=== PATIENT | female | born 1960 | race Hispanic/Latino ===

== ENCOUNTER 2018-09-22 08:30 | Inpatient (IN) | payer MEDICARE ==
[~2018-09-22] VITALS: Ht 149.9 cm; Wt 68.8 kg
[2018-09-22 14:15] VITALS: BP 108/58
[2018-09-22 14:21] LABS: INR 0.87 (0.85-1.15); PARTIAL THROMBOPLASTIN TIME 26.4 SEC (26.3-35.5); PROTHROMBIN TIME 9.2 SEC (9.6-11.6)
[2018-09-22] MEDS ORDERED: PREG75 PO (14:30)
[2018-09-22] MEDS ORDERED: HYDR-4060 PO (14:30)
[2018-09-22] MEDS ORDERED: PRAV20TA4 PO (14:30)
[2018-09-22] MEDS ORDERED: INSU100V12 SQ (14:30)
[2018-09-22] MEDS ORDERED: INSNOV SQ (14:30)
[2018-09-22] MEDS ORDERED: ASPI-555 PO (14:30)
[2018-09-22] MEDS ORDERED: METF-446 PO (14:30)
--- NOTE | 2018-09-22 15:20 | NUR ---
informed patient not to take any medication or insulin the morning of surgery, nothing to eat or drink after midnight, patient verbalized understanding
[2018-09-23] MEDS ORDERED: CEFAZOLIN SODIUM 1 GM VIAL IVP SCH (06:00)
--- NOTE | 2018-09-23 13:54 | NUR ---
PT WAS A NO SHOW DOS. PT REPORTED SHE IS IN THE ED WITH WEAKNESS, CX PROCEDURE
[2018-09-29 16:21] VITALS: BP 109/82
[2018-09-30] VITALS (18 sets, daily range): BP systolic 121–158; BP diastolic 62–89
[2018-09-30] MEDS: CEFAZOLIN SODIUM 1 GM VIAL IVP SCH ×4 (06:00→23:51)
[2018-09-30] MEDS ORDERED: SODIUM CHLORIDE 0.9% 1000ML 1,000 ML IV ONE (07:43)
[2018-09-30] MEDS ORDERED: INSULIN HUMULIN R 100 UNIT/ML 3ML ONE (08:01)
[2018-09-30] MEDS ORDERED: INSULIN HUMULIN R 100 UNIT/ML 3ML IV PRN (08:15)
[2018-09-30] MEDS ORDERED: LIDOCAINE PF 2% 5ML ABBOJECT ONE (11:10)
[2018-09-30] MEDS ORDERED: GLYCOPYRROLATE 1 MG/5 ML SYRINGE ONE (11:10)
[2018-09-30] MEDS ORDERED: ONDANSETRON HCL 4 MG/2 ML VIAL ONE (11:10)
[2018-09-30] MEDS ORDERED: DEXAMETHASONE SOD PHOSPHATE 10MG/ML 1ML VIAL ONE (11:10)
[2018-09-30] MEDS ORDERED: MIDAZOLAM HCL 1 MG/ML 2ML VIAL ONE (11:11)
[2018-09-30] MEDS ORDERED: FENTANYL CITRATE PF 50 MCG/1 ML 2ML VIAL ONE (11:11)
[2018-09-30] MEDS ORDERED: ROCURONIUM 10MG/1ML SYR 10 MG/ML ML ONE (11:11)
[2018-09-30] MEDS ORDERED: PROPOFOL 10 MG/ML 20ML VIAL IV ONE (11:11)
[2018-09-30] MEDS ORDERED: NEOSTIGMINE 5MG/5ML SYR IV ONE (11:11)
[2018-09-30] MEDS ORDERED: ROPIVACAINE 0.5% 5MG/ML 30ML IJ ONE (11:14)
--- NOTE | 2018-09-30 13:03 | NUR ---
NOTIFIED DR SOSA OF [facility], NEW ORDERS NOTED. WILL CONTINUE TO MONITOR. Addendum: 09/30/18 at 1303 by DAMI ROYAL RN RN Amended: Links added.
[2018-09-30] MEDS: INSULIN HUMULIN R 100 UNIT/ML 3ML ONE ×2 (13:14→13:21)
[2018-09-30] MEDS ORDERED: LACTATED RINGERS 1000ML 1,000 ML IV ONE (13:36)
[2018-09-30] MEDS ORDERED: BISACODYL 10 MG SUPP.RECT RC PRN (14:15)
[2018-09-30] MEDS ORDERED: PROMETHAZINE HCL 25 MG/ML 1ML AMPULE IM PRN (14:15)
[2018-09-30] MEDS ORDERED: ACETAMINOPHEN 325 MG TAB PO PRN (14:15)
[2018-09-30] MEDS ORDERED: LACTATED RINGERS 1000ML 1,000 ML IV SCH (14:15)
[2018-09-30] MEDS ORDERED: MAGNESIUM HYDROXIDE 30 ML/UDCUP PO PRN (14:15)
--- NOTE | 2018-09-30 16:00 | NUR ---
Pt's abduction pillow to right upper arm/shoulder not in proper position, has shifted as pt moves or ambulates. Notified physical inhalation therapy aides teacher who replaced in proper position as ordered by .
[2018-09-30 18:32] LABS: HEMATOCRIT 34.6 % (36-48)
[2018-09-30] MEDS ORDERED: HYDROCODONE/ACETAMINOPHEN 5/325 MG TAB ONE (18:55)
[2018-09-30] MEDS: HYDROCODONE/ACETAMINOPHEN 5/325 MG TAB PO SCH (18:57)
[2018-09-30] MEDS: MORPHINE SULFATE 10 MG/ML 1ML VIAL IM PRN (20:34)
[2018-09-30] MEDS: INSULIN HUMULIN R 100 UNIT/ML 3ML SQ SCH (21:00)
--- NOTE | 2018-09-30 22:58 | NUR ---
PAIN PT STILL C/O PAIN OF 10 ON 1-10 PAIN SCALE. MORPHINE WAS GIVEN [address] HUGO FOR FURTHER ORDERS BUT NO ANSWER. WILL CONT TO TRY TO GET A HOLD OF DR HUGO
--- NOTE | 2018-09-30 23:27 | NUR ---
DR. HUGO CALL PLACED TO HIM FOR PAIN MGMT. VOICE MESSAGE LEFT ON PHONE
--- NOTE | 2018-09-30 23:55 | NUR ---
DR. HUGO 2ND ATTEMPT TO CONTACT HIM REGARDING PAIN MGMT. VOICE MESSAGE LEFT ON PHONE
[2018-10-01] VITALS (7 sets, daily range): BP systolic 118–149; BP diastolic 53–81
--- NOTE | 2018-10-01 00:38 | NUR ---
DR BALLARD CALLED DR BALLARD CALLED AND INFORMED THAT DR HUGO DID NOT ANSWER AFTER MANY ATTEMPTS. ORDERED TO CONSULT HOSPITALIST.
--- NOTE | 2018-10-01 00:45 | NUR ---
HOSPITALIST CONSULT CANCELLED PER HARTMANN NP CANCEL HOSPITALIST CONSULT. PT ALREADY HAS PRIMARY AND NEEDS TO BE REACHED. SPECTROGRAPH OPERATOR INFORMED.
[2018-10-01 00:50] LABS: HEMATOCRIT 33.9 % (36-48)
[2018-10-01 06:06] LABS: HEMATOCRIT 33.2 % (36-48)
[2018-10-01] MEDS: INSULIN HUMULIN R 100 UNIT/ML 3ML SQ SCH ×4 (06:35→20:47)
[2018-10-01] MEDS: CEFAZOLIN SODIUM 1 GM VIAL IVP SCH (08:22)
[2018-10-01] MEDS: HYDROCODONE/ACETAMINOPHEN 5/325 MG TAB PO SCH ×2 (08:23→20:39)
[2018-10-01] MEDS: MORPHINE SULFATE 10 MG/ML 1ML VIAL IM PRN ×2 (08:24→17:32)
--- NOTE | 2018-10-01 12:00 | NUR ---
CARMEN ZENDEJAS MET W PT S/P SHOULDER SURGERY, STATES INDP OF ADLS, LIVES W [address] [place](YOUNG ADULTS/TEENS, LOT OF HELP AT HOME, USES A [employer], HAS SOME FOOT DROP, BUT WILL GET LOT OF ASSISTANCE ON DISCHARGE. PLAN IS HOME AND THERPAY AT DR. SILVA OFFICE. DCP HOME Addendum: 10/01/18 at 1932 by MAHSA OCASIO RN CM Amended: Links added.
[2018-10-01] MEDS ORDERED: MORPHINE SULFATE 2 MG/ML 1ML SYG IM PRN (12:45)
[2018-10-01] MEDS ORDERED: MORPHINE SULFATE 2 MG/ML 1ML SYG ONE (13:09)
--- NOTE | 2018-10-01 13:54 | NUR ---
DIRECTOR NOTIFIED GISSELLE CHAMPAGNE DIRECTOR NOTIFIED ABOUT DR. BALLARD'S ORDERS , HE CALLED DR. ZHANG AND NOTIFIED HIM OF CONSULT.
[2018-10-01] MEDS ORDERED: MORPHINE SULFATE 2 MG/ML 1ML SYG IV PRN (16:45)
--- NOTE | 2018-10-01 18:42 | NUR ---
PAIN 0924 PAIN LEVEL 10, MORPHINE GIVEN ORDERED, NO CALL BACK FROM DR HUGO, WAS PAGED BY DIRECTOR HEALTH, PATIENT STABLE AT THIS TIME, RESPONDS WELL TO MORPHINE, PAIN LEVEL DECREASED TO 4. 1245 PATIENT REPORTS PAIN LEVEL OF 10, NO OTHER PAIN MEDICATION AVAILABLE, DR HUGO PAGED. 1300 DR BALLARD IN TO SEE PATIENT, INFORMED PAIN LEVEL OF 10, PER MD HE "DOES NOT WANT BETHEL ON CASE, CANCEL BETHEL AND CONSULT HOSPITALIST BECAUSE HE DIDNT CALL BACK LAST NIGHT" INFORMED HOSPITALIST 1305 DR HUGO RETURNS CALL RECEIVED ORDERS FOR PAIN MEDICATIONS, INFORMED NELLIE VILLANUEVA UPSET STATING " DR HUGO IS NO LONGER ON CASE, A CHANCE WAS GIVEN, CANCEL BETHEL AND CONSULT HOSPITALIST" DR ZHANG INFORMED, STATES WILL SEE PATIENT.
--- NOTE | 2018-10-01 20:00 | NUR ---
MD CONSULT/VISIT AWAITING FOR HOSPITALIST DR. ZHANG TO SEE PATIENT
[2018-10-01] MEDS ORDERED: DIPHENHYDRAMINE HCL 25 MG CAPSULE ONE (22:02)
--- NOTE | 2018-10-01 22:30 | NUR ---
HOSPITALIST DR. ZHANG DID NOT SEE PATIENT, INFORM HOSPITALIST FINISHING ROOM OPERATOR FABRIZIO SILVER REGARDING PENDING CONSULT, WILL SEE PATIENT SIMONA
[2018-10-02] MEDS ORDERED: DIPHENHYDRAMINE HCL 25 MG CAPSULE PO PRN (00:45)
[2018-10-02] MEDS ORDERED: ONDANSETRON HCL 4 MG/2 ML VIAL IV PRN (01:00)
[2018-10-02] MEDS ORDERED: GLUCAGON 1MG KIT 1 MG ML IM PRN (01:00)
[2018-10-02] MEDS ORDERED: DEXTROSE 50%-WATER 50 ML DISP.SYRIN IV PRN (01:00)
[2018-10-02 03:05] VITALS: BP 124/74
[2018-10-02] MEDS: HYDROCODONE/ACETAMINOPHEN 5/325 MG TAB PO PRN ×2 (03:33→12:16)
[2018-10-02 04:45] LABS: BASOPHILS % (AUTO) 0.6 % (0.0-5.0); HEMATOCRIT 31.5 % (36-48); LYMPHOCYTES % (AUTO) 15.6 % (21.0-51.0); MEAN CORPUSCULAR HEMOGLOBIN 28.3 pg (27.0-33.0); MEAN CORPUSCULAR HGB CONC 33.7 g/dL (32.0-36.0); NEUTROPHILS % (AUTO) 73.8 % (40.0-77.0); PLATELET COUNT (AUTO) 268 K/uL (130-400); RED BLOOD CELL COUNT(AUTO) 3.75 MIL/uL (4.00-5.50); RED CELL DISTRIBUTION WIDTH 14.4 % (11.0-15.5)
[2018-10-02 04:59] LABS: CREATININE 0.6 mg/dL (0.5-1.5); POTASSIUM 3.6 mmol/L (3.5-5.1)
[2018-10-02] MEDS: INSULIN HUMULIN R 100 UNIT/ML 3ML SQ SCH ×2 (06:23→11:30)
[2018-10-02] MEDS ORDERED: TYL3 PO (06:30)
[2018-10-02] MEDS: HYDROCODONE/ACETAMINOPHEN 5/325 MG TAB PO SCH ×2 (07:33→08:12)
[2018-10-02 08:00] VITALS: BP 124/79
[2018-10-02] MEDS ORDERED: METFORMIN HCL 500 MG TABLET PO SCH (08:00)
[2018-10-02] MEDS: INSULIN LISPRO 100 UNIT/ML 3ML SQ SCH ×2 (08:31→12:00)
[2018-10-02] MEDS ORDERED: PREGABALIN 75 MG CAPSULE PO SCH (09:00)
[2018-10-02] MEDS ORDERED: POLYETHYLENE GLYCOL 3350 17 GM POWD.PACK PO SCH (09:00)
[2018-10-02] MEDS ORDERED: ASPIRIN 81MG TAB.CHEW PO SCH (09:00)
[2018-10-02] MEDS ORDERED: FAMOTIDINE 20MG TAB 20 MG TAB PO SCH (09:00)
[2018-10-02 11:00] VITALS: BP 101/59
--- NOTE | 2018-10-02 13:03 | NUR ---
DISCHARGE DISCHARGE TEACHING DONE WITH PATIENT, VERBALIZED UNDERSTANDING. NO NOTED SOB OR DISTRESS. NEW MEDICATION ADMINISTRATION TEACHING DONE WITH PATIENT, VERBALIZED UNDERSTANDING. PT AWARE OF NEED TO ATTEND DR. BALLARD APPOINTMENT. DRESSING CHANGED, INCISION IS DRY AND INTACT. ABD PILLOW AND DRESSING TEACHING DONE WITH PATIENT USING TEACHBACK METHOD, VERBALIZED UNDERSTANDING. IV REMOVED, CATH TIP INTACT.
[2018-10-02] MEDS ORDERED: INSULIN GLARGINE 100 UNITS/ML 10 ML VIAL SQ SCH (21:00)
[2018-10-02] MEDS ORDERED: ***HM***Pravastatin Sodium 20 MG PO SCH (21:00)
== END 2018-10-02 13:06 | disposition home or self-care (01) | DRG 502 ==
LOC: DAHIP 09-30 06:19 → EDSTATUS 09-30 09:00 → 4AH 09-30 13:29
PROC: 0MN10ZZ Release Right Shoulder Bursa and Ligament, Open Approach (ICD-10-PCS; principal; 2018-09-30 11:11)
PROC: 0RBG0ZZ Excision of Right Acromioclavicular Joint, Open Approach (ICD-10-PCS; 2018-09-30 11:11)
DX: M75.101 Unspecified rotator cuff tear or rupture of right shoulder, not specified as traumatic (principal); M75.41 Impingement syndrome of right shoulder; M75.01 Adhesive capsulitis of right shoulder; K21.9 Gastro-esophageal reflux disease without esophagitis; E11.41 Type 2 diabetes mellitus with diabetic mononeuropathy; F17.200 Nicotine dependence, unspecified, uncomplicated; M13.811 Other specified arthritis, right shoulder; G43.909 Migraine, unspecified, not intractable, without status migrainosus; H53.8 Other visual disturbances; Z79.4 Long term (current) use of insulin; Z90.710 Acquired absence of both cervix and uterus; Z83.3 Family history of diabetes mellitus; Z80.1 Family history of malignant neoplasm of trachea, bronchus and lung
CPT/HCPCS: 36415; 80048; 82948; 85014; 85018; 85025; 85610; 85730; 94760; A4606; G0378; J0690; J1100; J1815; J2001; J2250; J2270; J2405; J2550; J2704; J2710; J2795; J3010; J3490; J7030; J7120; Q0163

== ENCOUNTER 2024-02-18 11:24 | Emergency (ER) | payer MEDICARE ==
[~2024-02-18] VITALS: Ht 147.3 cm; Wt 62.6 kg
[~2024-02-18 11:24] MED LIST: ASPI-556 PO; HYDR-4060 PO; INSNOV SQ; INSU100V12 SQ; METF-446 PO; PRAV20TA4 PO; PREG75 PO; TYL3 PO
[2024-02-18 12:02] LABS: BASOPHILS # (AUTO) 0.04 K/uL (0.00-0.20); BASOPHILS % (AUTO) 0.6 % (0.0-5.0); EOSINOPHILS # (AUTO) 0.14 K/uL (0.00-0.70); EOSINOPHILS % (AUTO) 1.9 % (0.0-8.0); IMMATURE GRANULOCYTE ABSOLUTE 0.03 K/uL (0-1); LYMPHOCYTES # (AUTO) 1.3 K/uL (1.0-4.8); LYMPHOCYTES % (AUTO) 18.2 % (21.0-51.0); MEAN CORPUSCULAR HEMOGLOBIN 27.2 pg (27.0-33.0); MEAN CORPUSCULAR HGB CONC 33.2 g/dL (32.0-36.0); MEAN CORPUSCULAR VOLUME 81.7 fL (79-99); MONOCYTES # (AUTO) 0.5 K/uL (0.1-1.0); MONOCYTES % (AUTO) 6.6 % (3.0-13.0); NEUTROPHILS # (AUTO) 5.2 K/uL (1.8-7.7); NEUTROPHILS % (AUTO) 72.3 % (40.0-77.0); PLATELET COUNT (AUTO) 237 K/uL (130-400); RED BLOOD CELL COUNT(AUTO) 4.16 MIL/uL (4.00-5.50); RED CELL DISTRIBUTION WIDTH 13.5 % (11.0-15.5); WHITE BLOOD COUNT (AUTO) 7.3 K/uL (4.8-10.8)
[2024-02-18 12:13] LABS: SARS-CoV-2, RNA, NAAT NEGATIVE SARS CoV-2 (NEGATIVE)
[2024-02-18 12:15] LABS: INFLUENZA TYPE A Negative For Type A (NEGATIVE)
[2024-02-18 12:21] LABS: CREATININE 1.3 mg/dL (0.5-1.0); POTASSIUM 3.9 mmol/L (3.5-5.1)
[2024-02-18 12:30] LABS: INFLUENZA TYPE B Positive For Type B (NEGATIVE)
[2024-02-18] MEDS: ONDANSETRON 4MG INJ IVP ONE (12:33)
[2024-02-18] MEDS: MORPHINE 2 MG SYG IVP ONE (12:33)
[2024-02-18 13:20] LABS: APPEARANCE,URINE CLEAR (CLEAR); BILIRUBIN,URINE NEGATIVE (NEGATIVE); COLOR,URINE LIGHT-YELLOW (YELLOW); GLUCOSE, URINE (UA) >=1000 mg/dL (NEGATIVE); KETONES,URINE NEGATIVE (NEGATIVE); LEUKOCYTE ESTERASE ,URINE NEGATIVE Leu/uL (NEGATIVE); NITRATE,URINE NEGATIVE (NEGATIVE); OCCULT BLOOD,URINE NEGATIVE (NEGATIVE); UROBILINOGEN,URINE 0.2 mg/dL (0.2-1.0)
[2024-02-18 13:21] LABS: ADD UA MICROSCOPIC YES; PROTEIN,URINE 30 mg/dL (NEGATIVE)
[2024-02-18 13:22] LABS: BACTERIA,URINE FEW /HPF (None Seen); MUCUS,URINE RARE LPF (None Seen); RBC,URINE 0-1 /HPF (0-1); WBC,URINE 0-1 /HPF (0-1)
[2024-02-18] MEDS: cefTRIAXone 1G VIAL IVPB ONE (15:35)
[2024-02-18 16:10] VITALS: BP 120/66; PULSE 86; RESP 18; O2SAT 98
== END 2024-02-18 16:14 | disposition home or self-care (01) ==
LOC: EDH 11:24
DX: J10.1 Influenza due to other identified influenza virus with other respiratory manifestations (principal); Z20.822 Contact with and (suspected) exposure to COVID-19; E11.9 Type 2 diabetes mellitus without complications; E78.00 Pure hypercholesterolemia, unspecified; I10 Essential (primary) hypertension; Z79.899 Other long term (current) drug therapy; Z79.4 Long term (current) use of insulin; Z79.82 Long term (current) use of aspirin; Z79.84 Long term (current) use of oral hypoglycemic drugs; Z98.890 Other specified postprocedural states
CPT/HCPCS: 99285; 96365; 96375; 71045; 87635; 84484; 80048; 85025; 87804 ×2; 81001; 36415; 93005; J2270; J0696; J2405

== ENCOUNTER 2024-11-24 15:45 | Inpatient (IN) | payer MEDICARE, MEDICAID ==
[~2024-11-24] VITALS: Ht 147.3 cm; Wt 54.4 kg
[~2024-11-24 15:45] MED LIST changes: -PRAV20TA4 PO; +PRAV20TA59 PO
[2024-11-24 16:19] LABS: APPEARANCE,URINE CLOUDY (CLEAR); BILIRUBIN,URINE NEGATIVE (NEGATIVE); COLOR,URINE YELLOW (YELLOW); GLUCOSE, URINE (UA) >=1000 mg/dL (NEGATIVE); KETONES,URINE NEGATIVE (NEGATIVE); LEUKOCYTE ESTERASE ,URINE MODERATE Leu/uL (NEGATIVE); NITRATE,URINE NEGATIVE (NEGATIVE); OCCULT BLOOD,URINE NEGATIVE (NEGATIVE); PROTEIN,URINE NEGATIVE (NEGATIVE); UROBILINOGEN,URINE 0.2 mg/dL (0.2-1.0)
[2024-11-24 16:21] LABS: ADD UA MICROSCOPIC YES
[2024-11-24 16:25] LABS: BACTERIA,URINE Few /HPF (None Seen); RBC,URINE None Seen /HPF (0-1)
--- NOTE | 2024-11-24 16:35 | EKG ---
[facility] Test Date: 2024-11-24 Test Time: 16:31:59 Pat Name: FRANCO RAMOS Department: ED Room: 222 Gender: F Parts Department Supervisor: [phone] [id number] Requested By: JOLENE ENGLAND Order Number: [id number] Reading MD: Raphael Aponte Measurements Intervals [place] Rate: 79 P: 55 WI: 170 QRS: 36 QRSD: 81 T: 60 QT: 385 QTc: 443 Interpretive Statements Sinus rhythm Compared to ECG 02/18/2024 11:38:41 No significant changes Electronically Signed On 11-24-2024 22:56:53 CDT by Raphael Aponte Please click the below link to view image of tracing.
[2024-11-24 16:37] LABS: BASOPHILS # (AUTO) 0.05 K/uL (0.00-0.20); BASOPHILS % (AUTO) 0.8 % (0.0-5.0); EOSINOPHILS # (AUTO) 0.12 K/uL (0.00-0.70); EOSINOPHILS % (AUTO) 1.9 % (0.0-8.0); HEMATOCRIT 32.4 % (36-48); IMMATURE GRANULOCYTE ABSOLUTE 0.02 K/uL (0-1); LYMPHOCYTES # (AUTO) 2.5 K/uL (1.0-4.8); MEAN CORPUSCULAR HGB CONC 34.3 g/dL (32.0-36.0); MEAN CORPUSCULAR VOLUME 81.8 fL (79-99); MONOCYTES # (AUTO) 0.5 K/uL (0.1-1.0); MONOCYTES % (AUTO) 7.6 % (3.0-13.0); NEUTROPHILS # (AUTO) 3.3 K/uL (1.8-7.7); NEUTROPHILS % (AUTO) 51.4 % (40.0-77.0); PLATELET COUNT (AUTO) 248 K/uL (130-400); RED BLOOD CELL COUNT(AUTO) 3.96 MIL/uL (4.00-5.50); RED CELL DISTRIBUTION WIDTH 13.4 % (11.0-15.5); WHITE BLOOD COUNT (AUTO) 6.5 K/uL (4.8-10.8)
--- NOTE | 2024-11-24 16:38 | HMCIMG ---
Exam Type: CHEST 1VW Clinical Information: CHEST PAIN Comparison: None Findings: The lungs are clear of infiltrates. The heart is normal in size. The bony and soft tissue structures of the chest are unremarkable. Impression: Clear lungs.
--- NOTE | 2024-11-24 16:42 | ERN ---
ED Note History of Present Illness Stated Complaint: DIZZINESS Chief Complaint: Dizzy/Light Headed Time Seen by MD: 15:58 Dictation: This is a 63-year-old female who was sent from [facility] via EMS as she was complaining of dizziness and lightheadedness. She had similar presentation in 2023 and was admitted to the hospital. Apparently when they checked her blood pressure it was 53/33 and EMS gave her a L of LR with some improvement. Her Accu-Chek per EMS was 180s. When she came into the ER her blood pressure was 72/49. Patient stated that she has no other symptoms and she has been drinking water. She does report that her sugars have been in the 400s and she just took insulin today no fever chills or rigors no abdominal pain discomfort nausea vomitings diarrhea no palpitations chest pain. Blood pressure 72/49 heart rate 74 respiratory rate 16 pulse oximetry 95% on room air. Temp is 98 Her chronic medical problems include history of diabetes mellitus type 2 insulin requiring, high cholesterol, hypertension, depression, arthritis and atrial fibrillation details unclear Allergies: Coded Allergies: No Known Allergies (Unverified Allergy, Unknown, 09/22/18) Home Meds Active Scripts Acetaminophen with Codeine (Tylenol with Codeine #3) 1 Tab Tab, 1 TAB PO Q6HPRN PRN for PAIN LEVEL 6 TO 10 for 3 Days, #18 TAB Prov:PATRICE MACEDO AGPCNP 10/02/18 Reported Medications Insulin Aspart (Novolog) 100 Units/Ml Inj, 25 UNITS SQ TID, ML 09/22/18 Insulin Detemir (Levemir) 100 Unit/1 Ml Vial, 55 UNIT SQ HS, VIAL 09/22/18 Aspirin (Aspir 81) 81 Mg Tablet.dr, 81 MG PO DAILY, TAB 09/22/18 Hydrocodone/Acetaminophen (Hydrocodon-Acetaminophen 5-325) 1 Each Tablet, 1 EACH PO BID, TAB 09/22/18 Pregabalin (Lyrica) 75 Mg Cap, 75 MG PO TID, CAP 09/22/18 Metformin HCl (Metformin HCl) 1,000 Mg Tablet, 1000 MG PO BID, TAB 09/22/18 Pravastatin Sodium (Pravastatin Sodium) 20 Mg Tablet, 20 MG PO HS, TAB 09/22/18 Past Medical History Past Medical History: A-Fib, Arthritis, Depression, Diabetes-Type II, GERD, High Cholesterol, Hypertension, Other Additional Past Medical Hx: VAGINITIS Surgical History: Hysterectomy, Cholecystectomy, Other Surgical History Other: HERNIA REPAIR Social History: Negative History: Not Applicable RN Note Reviewed/Agreed w/PFSH: Yes Review of System Dictation Constitutional: Negative for fever,chills, and weight loss positive only for lightheadedness and dizziness Eyes: Negative for injury, pain,redness, and discharge ENT: Negative for injury,pain or swelling Cardiovascular: Negative for chest pain, palpitations, and edema Respiratory: Negative for shortness of breath, cough, and wheezing, Abdomen/GI: Negative for abdominal pain, nausea, vomiting, diarrhea, and constipation Back: Negative for injury and pain : Negative for injury, bleeding and discharge MS/Extremity: Negative for injury and deformity Skin: Negative for rash, and discoloration Neuro: Negative for headache, weakness, numbness, tingling, and seizure Psych: Negative for suicide ideation, homicidal ideation, and hallucinations Initial Vital Sign VS Vital Signs Date Time Temp Pulse Resp B/P (MAP) Pulse Ox O2 Delivery O2 Flow Rate FiO2 11/24/24 15:45 98.1 74 16 72/49 95 Room Air 0 11/24/24 16:04 21 Physical Exam Dictation General: awake, alert, NAD chronically ill-appearing but in good spirits Head/Face: Normocephalic, atraumatic Eyes: PERRL, EOMI, vision at baseline ENT: oral cavity clear, TMs clear, no signs of infection Neck: Trachea midline, supple, no nuchal rigidity Cardiovascular: RRR, normal S1/S2, No MRGs, no JVD Respiratory: CTAB, no respiratory distress, No rales or wheezes Abdomen: Soft, non-tender, non-distended, normal bowel sounds, no guarding or rebound. Skin: Warm, dry, normal turgor, no rash MS/Extremity: Pulses equal, no cyanosis, neurovascular intact, FROM Neuro: COAx4, GCS 15, strength 5/5, CN 2-12 intact, normal cerebellar exam, normal gait, Psych: Normal behavior, mood, and affect normal Extremities-trace edema without any palpable cords, Homans sign is negative Results (Laboratory/Radiology) Laboratory/Radiology Laboratory Tests Test 11/24/24 16:11 11/24/24 16:20 Urine Color YELLOW (YELLOW) Urine Appearance CLOUDY (CLEAR) H Urine pH 6.0 (5.0-8.0) Urine Specific [place] 1.015 (1.001-1.031) Urine Protein NEGATIVE mg/dL (NEGATIVE) Urine Glucose (UA) >=1000 mg/dL (NEGATIVE) H Urine Ketones NEGATIVE mg/dL (NEGATIVE) Urine Occult Blood NEGATIVE (NEGATIVE) Urine Nitrate NEGATIVE (NEGATIVE) Urine Bilirubin NEGATIVE mg/dL (NEGATIVE) Urine Urobilinogen 0.2 mg/dL (0.2-1.0) Urine Leukocyte Esterase MODERATE Anna/uL Urine RBC None Seen /HPF (0-1) Urine WBC 6-10 /HPF (0-1) H Urine Squamous Epithelial Cells 2-5 /HPF (0-2) Urine Bacteria Few /HPF (None Seen) White Blood Count 6.5 K/uL (4.8-10.8) Red Blood Count 3.96 MIL/uL (4.00-5.50) L Hemoglobin 11.1 g/dL (12.0-16.0) L Hematocrit 32.4 % (36-48) L Mean Corpuscular Volume 81.8 fL (79-99) Mean Corpuscular Hemoglobin 28.0 pg (27.0-33.0) Mean Corpuscular Hemoglobin Concent 34.3 g/dL (32.0-36.0) Red Cell Distribution Width 13.4 % (11.0-15.5) Platelet Count 248 K/uL (130-400) Mean Platelet Volume 9.8 fL (7.5-10.5) Immature Granulocyte % (Auto) 0.3 % (0-1) Neutrophils (%) (Auto) 51.4 % (40.0-77.0) Lymphocytes (%) (Auto) 38.0 % (21.0-51.0) Monocytes (%) (Auto) 7.6 % (3.0-13.0) Eosinophils (%) (Auto) 1.9 % (0.0-8.0) Basophils (%) (Auto) 0.8 % (0.0-5.0) Neutrophils # (Auto) 3.3 K/uL (1.8-7.7) Lymphocytes # (Auto) 2.5 K/uL (1.0-4.8) Monocytes # (Auto) 0.5 K/uL (0.1-1.0) Eosinophils # (Auto) 0.12 K/uL (0.00-0.70) Basophils # (Auto) 0.05 K/uL (0.00-0.20) Absolute Immature Granulocyte (auto 0.02 K/uL (0-1) Nucleated Red Blood Cells 0.0 % (0.0-0.19) Sodium Level 137 mmol/L (136-145) Potassium Level 3.9 mmol/L (3.5-5.1) Chloride Level 104 mmol/L (101-111) Carbon Dioxide Level 24 mmol/L (21-32) Blood Urea Nitrogen 35 mg/dL (7-18) H Creatinine 1.1 mg/dL (0.5-1.0) H Glomerular Filtration Rate Calc 57 mL/min (>90) Random Glucose 133 mg/dL (70-105) H Lactic Acid Level 2.8 mmol/L (0.8-2.5) H Total Calcium 8.6 mg/dL (8.5-10.1) Total Creatine Kinase 60 U/L (21-232) Troponin I High Sensitivity 4 ng/L (4-50) B-Type Natriuretic Peptide 14 pg/mL (0-100) Labs Reviewed?: Yes EKG Comment: Twelve lead EKG done on 11/24/2024 at 4:31 p.m. showed a heart rate of 79, AL interval 170, QRS duration 81, QT/QTC 385/443 Impression normal sinus rhythm with no acute STT wave changes noted. EKG rhythm strip shows a normal sinus rhythm with no acute STT wave changes. EKG interpreted by ER MD Dr. England ED Course ED Course Orders Procedure Category Date Status Time Vital Signs Per CPOE 11/24/24 Transmitted Routine 16:05 B-Type Natriuretic LAB 11/24/24 Complete Peptide 16:05 Chest 1vw RAD 11/24/24 Resulted 16:05 12 Lead Ekg Tracing- EKG 11/24/24 Complete Technical 16:05 Oxygen By Nc/Pulse Ox CPOE 11/24/24 Transmitted 16:05 Maintain Iv CPOE 11/24/24 Transmitted 16:05 Iv Insertion CPOE 11/24/24 Transmitted 16:05 Cardiac Monitoring CPOE 11/24/24 Transmitted 16:05 Pulse Oximetry With CPOE 11/24/24 Transmitted Vs And Prn 16:05 Cbc With Differential LAB 11/24/24 Complete 16:05 Activity: Br W/Brp CPOE 11/24/24 Transmitted With Assist 16:05 Creatine Kinase, Total LAB 11/24/24 Complete 16:05 Troponin I High LAB 11/24/24 Complete Sensitivity 16:05 Urinalysis Profile LAB 11/24/24 Complete 16:05 Basic Metabolic Panel LAB 11/24/24 Complete 16:05 Culture Urine CORIN 11/24/24 In Process 16:22 Lactic Acid LAB 11/24/24 Complete 16:30 Ceftriaxone 1g Vial PHA 11/24/24 Complete (Rocephine 1g Inj) 17:30 Edm Admit Bridge Order ADM 11/24/24 Verified 18:50 Current Medications Medications (Trade) Dose Ordered Sig/Magdiel Route PRN Reason Start Time Stop Time Status Last Admin Dose Admin Ceftriaxone Sodium (ROCEphine 1G INJ) 1 gm ONCE ONCE IVPB 11/24/24 17:30 11/24/24 17:31 DC 11/24/24 16:59 Vital Signs Date Time Temp Pulse Resp B/P (MAP) Pulse Ox O2 Delivery O2 Flow Rate FiO2 11/24/24 18:22 90 18 96/64 98 Room Air* 0 21 11/24/24 17:06 80 18 112/58 99 Room Air* 0 21 11/24/24 16:04 18 94/53 Room Air* 0 21 11/24/24 15:45 98.1 74 16 72/49 95 Room Air 0 We will perform diagnostic labs, advanced imaging and administer medications according to the patient's complaint. Once the results are available, will review and personally interpreted the labs to rule out any acute life- threatening emergency the trach require immediate intervention and treatment. I will then re-evaluate the patient after treatment and diagnostic exams have return to determine whether the patient requires any further testing, can safely be discharged home or need further admission to hospital for additional treatment and evaluation. Labs reviewed urinalysis showed moderate leuko esterase positive WBCs is 6 to 10. Lactic acid was 2.8 BUN and creatinine are 35 and 1.1. I recommended admission to the hospital in view of hypotension and probably sepsis related to UTI and patient is agreeable 6:50 p.m. patient was accepted by [facility] mid-level provider for hospitalist group for admission and further management Medical Decision Making MDM MDM: Differential diagnosis: Hypotension-volume depletion, sepsis, osmotic diuresis from hyperglycemia, autonomic dysregulation Rationale: Tests considered and ordered secondary to shared decision making include: labs, ECG and radiology Previous outside records reviewed: Old ER visits. Risk of complication and/or morbidity or mortality of patient management: None Medications-Per medication reconciliation Need for hospitalization: Patient does meet criteria for hospitalization. Need for emergency major/minor surgery: No There are no social concerns with this patient. Prescription drug management Prescriptions will include symptomatic care Patient's prior external medical records from other ER visits were reviewed by me as indicated. Prior testing and results from previous visits were reviewed. Prior tests were taken into account with medical decision making and resource utilization, independent historian/historians were used to obtain complete medical history. I independently interpreted the test that were performed, results were reviewed by me and considered findings on radiology if ordered. Medical management and examination interpretation discussions were had by me with other qualified healthcare professionals as indicated for the patient's care. Problem List Problem List: (1) Sepsis (2) Hypotension (3) UTI (urinary tract infection) (4) Uncontrolled diabetes mellitus (5) Acute kidney injury (6) Lactic acidosis DX & DISP Disposition: Inpatient Departure Impression: Primary Impression: Sepsis Additional Impressions: Hypotension, UTI (urinary tract infection), Uncontrolled diabetes mellitus, Acute kidney injury, Lactic acidosis Condition: Stable Additional Instructions: Patient was informed of all the diagnostic labs and procedures conducted in the emergency room today and demonstrated understanding of the results. I personally reviewed and interpreted all the diagnostic exams performed in the ER today. The patient will be admitted to the hospital for further treatment and evaluation. Disposition-admit to facility Condition-stable/guarded Course-uncertain at this time Pain status-decreased Assessment-exam unchanged Admission Certification- I certify that the patients status is appropriate and is based on my best clinical judgment and the patient's condition as documented in the medical records Referrals: CESAR HUGO MD (PCP) JOLENE ENGLAND MD Nov 24, 2024 16:42
[2024-11-24 16:45] LABS: CREATININE 1.1 mg/dL (0.5-1.0); POTASSIUM 3.9 mmol/L (3.5-5.1)
[2024-11-24] MEDS: cefTRIAXone 1G VIAL IVPB ONE (16:59)
[2024-11-24 17:04] LABS: B-TYPE NATRIURETIC PEPTIDE 14 pg/mL (0-100)
--- NOTE | 2024-11-24 19:57 | NUR ---
ORTHO VS LYING- 134/65 SITTING- 128/56 STANDING- 142/55
[2024-11-24] MEDS ORDERED: ondanSETRON 4MG INJ IV PRN (20:00)
[2024-11-24] MEDS ORDERED: MAGNESIUM 2GM PREMIX 50ML 50 ML IV PRN (20:00)
[2024-11-24] MEDS ORDERED: PoTASSium chl 10% ELIXIR 20MEQ 20 MEQ/15 ML UDCUP PO PRN (20:00)
[2024-11-24] MEDS ORDERED: GLUCAGON 1MG KIT 1 MG ML IM PRN (20:00)
[2024-11-24] MEDS ORDERED: DEXTROSE 50%-WATER 50 ML DISP.SYRIN IV PRN (20:00)
[2024-11-24] MEDS ORDERED: PoTASSium chloRIDE 20MEQ/100ML 100 ML IV PRN (20:00)
[2024-11-24] MEDS ORDERED: acetaMINOPHEN 325 MG TAB PO PRN (20:00)
[2024-11-24] MEDS ORDERED: PoTASSium chloRIDE 20MEQ ER 20 MEQ ERTAB PO PRN (20:00)
[2024-11-24] MEDS: 0.9%NACL 1000ML 1,000 ML IV SCH (20:05)
--- NOTE | 2024-11-24 20:05 | HP ---
[facility] HISTORY AND PHYSICAL Date of Service: Nov 24, 2024 Time of Service: 19:33 PCP: Niki Lr MD HISTORY OF PRESENT ILLNESS: This is a 63-year-old female with past medical history of endometrial cancer, osteoarthritis, uncontrolled diabetes type 2, diabetic peripheral neuropathy, dyslipidemia, obesity , depression, non compliant with dietary and medication regimen,and cigarette smoker who was brought by the EMS to the ED coming from [facility] for evaluation of dizziness and lightheadedness and patient had similar presentation in 2023 and was seen here in this ER facility.Reportedly at the clinic her BP was 53/33 and the ambulance was called and patient was given LR bolus en route and Blood sugar was 180 when checked per EMS .At the ER patients BP was 72/49 .Patient states she has been having dizzy spells for the past 3 consecutive days and her blood sugar has been in the 400's at home because she does not take her meds as she is supposed to she said .Patient reports she smoke 8 cigarettes per day. Seen and examined patient in the Er awake,alert and coherent,appears comfortable.Patient denies headache, numbness, weakness, fever,chills,abdominal pain,nausea,vomiting,chest pain,palpitation and shortness of breath. Latest vital signs temperature 98.4, heart rate 89, blood pressure 95/62 saturation 95% on room air. Labs: Hemoglobin 11, hematocrit 32 platelet count 248. BUN 35, creatinine 1.1, GFR 57 glucose 133 lactic acid 2.8 troponin four BNP 14 the rest of the chemistry is unremarkable. Urinalysis is consistent with urinary tract infection. ECG result revealed normal sinus rhythm heart rate 79 . Chest x-ray result revealed clear lungs. While in the ER patient received Rocephin 1 g IV. We will admit patient for further medical management. REVIEW OF SYSTEMS CONSTITUTIONAL: Denies fevers, chills, or night sweats. No unintentional weight loss reported. NEUROLOGICAL: Complaints of dizziness and lightheadedness Denies headache, amaurosis fugax, motor weakness, sensory deficit, gait abnormalities, or tremors. ENT: No hearing loss, otalgia, otorrhea, rhinitis, rhinorrhea, hoarseness, or sore throat. CARDIOVASCULAR: Denies any exertional angina, dyspnea on exertion, orthopnea, paroxysmal nocturnal dyspnea, palpitations, life-threatening arrhythmias, cla udication. PULMONARY: Denies any shortness of breath, cough, phlegm/sputum, hemoptysis, pleuritic chest pain. SLEEP: Denies morning headaches, daytime somnolence or napping. Denies difficulty falling asleep, staying asleep, waking from sleep. Denies knowledge of snoring. GASTROINTESTINAL: Denies any type of dysphagia to either liquids or solids. Denies nausea, vomiting, pyrosis, early satiety, abdominal pain, diarrhea, constipation, or changes in stool consistency or caliber. Denies coffee-ground emesis, hematemesis, hematochezia, or melanotic stools. GENITOURINARY: Denies frequency, urgency, nocturia, hematuria or incontinence (Storage/Irritative symptoms.) Low urinary stream, straining to void, urinary intermittency or hesitancy, splitting of the voiding stream, terminal dribbling. ENDOCRINOLOGIC: Denies polyuria, polydipsia, polyphagia or heat/cold intolerances. HEMATOLOGIC: Denies thrombophilia/previous clots, or coagulopathy/bleeding disorders. ONCOLOGIC: Denies personal history of malignancy. DERMATOLOGIC: Denies rashes or pruritus. PSYCHIATRIC: Denies any suicidal or homicidal ideation. Denies hallucinations. PAST MEDICAL HISTORY: [ uncontrolled diabetes type 2, diabetic peripheral neuropathy, dyslipidemia, obesity , depression, non compliant with dietary and medication regimen, endometrial cancer, osteoarthritis and cigarette smoker ] PAST SURGICAL HISTORY: [ x4, hysterectomy, appendectomy, cholecystectomy, hernia repair x4, ] PAST SOCIAL HISTORY: [ ] FAMILY HISTORY: [ ] Coded Allergies: No Known Allergies (Unverified Allergy, Unknown, 09/22/18) PHYSICAL EXAM GENERAL APPEARANCE: The patient is awake, alert, and oriented, in no acute cardiopulmonary distress. NEUROLOGICAL: Cranial nerves II-XII grossly intact. Motor is 5/5 in bilateral upper and lower extremities proximal to distal. No sensory deficits. HEENT: Face is symmetric. Pupils are equal and reactive. Extraocular movements are intact. NECK: Supple. No JVD. No thyromegaly. No submental, submandibular, pre- /postauricular, occipital or supraclavicular lymphadenopathy. CHEST: Normal chest expansion. No Telemetry. LUNGS: Absence of any rales, rhonchi or any wheezing. CARDIOVASCULAR: Regular. S1 and S2 normal. No appreciable rubs, murmurs or gallops. ABDOMEN: Soft, nontender, and nondistended. There is no rebound, voluntary guarding, or rigidity. : Deferred. No Angulo. EXTREMITIES: Non-edematous and not cyanotic. No clubbing. Good capillary refill. SKIN: No skin breakdown. Vital Sign (Last 24 Hours) 11/24/24 11/24/24 15:45 18:22 Temp 98.1 Pulse 90 Resp 18 B/P (MAP) 96/64 Pulse Ox 98 O2 Delivery Room Air* O2 Flow Rate 0 FiO2 21 LABS: Laboratory: Test 11/24/24 16:20 11/24/24 16:11 Range/Units White Blood Count 6.5 4.8-10.8 K/uL Red Blood Count 3.96 L 4.00-5.50 MIL/uL Hemoglobin 11.1 L 12.0-16.0 g/dL Hematocrit 32.4 L 36-48 % Mean Corpuscular Volume 81.8 79-99 fL Mean Corpuscular Hemoglobin 28.0 27.0-33.0 pg Mean Corpuscular Hemoglobin Concent 34.3 32.0-36.0 g/dL Red Cell Distribution Width 13.4 11.0-15.5 % Platelet Count 248 130-400 K/uL Mean Platelet Volume 9.8 7.5-10.5 fL Immature Granulocyte % (Auto) 0.3 0-1 % Neutrophils (%) (Auto) 51.4 40.0-77.0 % Lymphocytes (%) (Auto) 38.0 21.0-51.0 % Monocytes (%) (Auto) 7.6 3.0-13.0 % Eosinophils (%) (Auto) 1.9 0.0-8.0 % Basophils (%) (Auto) 0.8 0.0-5.0 % Neutrophils # (Auto) 3.3 1.8-7.7 K/uL Lymphocytes # (Auto) 2.5 1.0-4.8 K/uL Monocytes # (Auto) 0.5 0.1-1.0 K/uL Eosinophils # (Auto) 0.12 0.00-0.70 K/uL Basophils # (Auto) 0.05 0.00-0.20 K/uL Absolute Immature Granulocyte (auto 0.02 0-1 K/uL Nucleated Red Blood Cells 0.0 0.0-0.19 % Sodium Level 137 136-145 mmol/L Potassium Level 3.9 3.5-5.1 mmol/L Chloride Level 104 101-111 mmol/L Carbon Dioxide Level 24 21-32 mmol/L Blood Urea Nitrogen 35 H 7-18 mg/dL Creatinine 1.1 H 0.5-1.0 mg/dL Glomerular Filtration Rate Calc 57 >90 mL/min Random Glucose 133 H 70-105 mg/dL Lactic Acid Level 2.8 H 0.8-2.5 mmol/L Total Calcium 8.6 8.5-10.1 mg/dL Total Creatine Kinase 60 21-232 U/L Troponin I High Sensitivity 4 4-50 ng/L B-Type Natriuretic Peptide 14 0-100 pg/mL Urine Color YELLOW YELLOW Urine Appearance CLOUDY H CLEAR Urine pH 6.0 5.0-8.0 Urine Specific Eagan 1.015 1.001-1.031 Urine Protein NEGATIVE NEGATIVE mg/dL Urine Glucose (UA) >=1000 H NEGATIVE mg/dL Urine Ketones NEGATIVE NEGATIVE mg/dL Urine Occult Blood NEGATIVE NEGATIVE Urine Nitrate NEGATIVE NEGATIVE Urine Bilirubin NEGATIVE NEGATIVE mg/dL Urine Urobilinogen 0.2 0.2-1.0 mg/dL Urine Leukocyte Esterase MODERATE H NEGATIVE Anna/uL Urine RBC None Seen 0-1 /HPF Urine WBC 6-10 H 0-1 /HPF Urine Squamous Epithelial Cells 2-5 0-2 /HPF Urine Bacteria Few None Seen /HPF DIAGNOSTICS / RADIOLOGY: [ ] ASSESSMENT: Symptomatic hypotension POA Acute urinary tract infection POA Uncontrolled diabetes POA Lactic acidosis POA Chronic kidney disease POA Chronic anemia POA Nicotine dependence POA Noncompliance with medication POA Obesity POA Dyslipidemia POA PLAN: We will admit patient in P[facility]U We will start on consistent carb diet Will start on Midodrine 5 mg po bid Will start on home dose statin daily We will start NS @ 100 ml / hr x2 bags and re evaluate We will start patient on Rocephin 1 g IV b.i.d. for empiric coverage We will start on Famotidine 20 mg p.o. daily for GI prophylaxis We will replace electrolytes as needed per protocol We will start on insulin sliding scale AC & HS with hypoglycemia protocol We will add prn medication for fever,pain,cough , nausea and vomiting We will request for orthostatic vital signs Q shift x2 We will reconcile home meds once medlist available We will request labs in am Further orders to follow depending on above results Case discussed with attending physician and came up with above treatment and plan of care. ADVANCED CARE PLANNING 1. Which of the following were discussed? Hospice Care - No Therapeutic options - Yes Advance Directives - No Other discussions - 2. Discussed with who? Patient 3. Voluntary nature of this service was explained to the patient? Yes 4. Amount of time spent - ___25____ 5. Reviewed by Physician? (if this service was performed by NPP) Yes Patient seen and examined by me. Agree with note by MACHINE II COREMAKER SEE ADDITIONAL ORDERS PER CHART DISCUSSED WITH NURSING STAFF GEORGIANA ATKINSON [facility] Nov 24, 2024 20:04
[2024-11-24] MEDS: cefTRIAXone 1G VIAL IVPB SCH (20:30)
[2024-11-24] MEDS ORDERED: cefTRIAXone 1G VIAL IVPB SCH (20:30)
[2024-11-24] MEDS: mecliZINE HCL 12.5 MG TABLET PO PRN (20:36)
[2024-11-24] MEDS: miDODRine HCL 5 MG TABLET PO ONE (20:36)
[2024-11-24] MEDS: atorVAStatin 10 MG TABLET PO SCH (20:37)
[2024-11-24] MEDS: INSULIN humuLIN R 100 UNIT/ML 3ML SQ SCH (20:39)
[2024-11-24] MEDS ORDERED: cefTRIAXone 1G VIAL 1 GM in 0.9%NACL 50ML 50 ML IV SCH (21:00)
[2024-11-24 23:00] VITALS: BP 120/66; PULSE 90; RESP 18; TEMP 98
[2024-11-25] VITALS (13 sets, daily range): BP systolic 85–133; BP diastolic 42–89; PULSE 71–84; RESP 18–20; TEMP 97–98.5; O2SAT 95–98
[2024-11-25 04:12] LABS: BASOPHILS # (AUTO) 0.05 K/uL (0.00-0.20); BASOPHILS % (AUTO) 0.8 % (0.0-5.0); EOSINOPHILS # (AUTO) 0.24 K/uL (0.00-0.70); EOSINOPHILS % (AUTO) 3.9 % (0.0-8.0); HEMATOCRIT 32.6 % (36-48); IMMATURE GRANULOCYTE ABSOLUTE 0.01 K/uL (0-1); LYMPHOCYTES # (AUTO) 2.5 K/uL (1.0-4.8); LYMPHOCYTES % (AUTO) 40.7 % (21.0-51.0); MEAN CORPUSCULAR HEMOGLOBIN 27.8 pg (27.0-33.0); MEAN CORPUSCULAR VOLUME 81.5 fL (79-99); MONOCYTES # (AUTO) 0.6 K/uL (0.1-1.0); MONOCYTES % (AUTO) 8.9 % (3.0-13.0); NEUTROPHILS # (AUTO) 2.8 K/uL (1.8-7.7); NEUTROPHILS % (AUTO) 45.5 % (40.0-77.0); PLATELET COUNT (AUTO) 279 K/uL (130-400); RED CELL DISTRIBUTION WIDTH 13.4 % (11.0-15.5); WHITE BLOOD COUNT (AUTO) 6.2 K/uL (4.8-10.8)
[2024-11-25 04:51] LABS: BILIRUBIN,TOTAL 0.2 mg/dL (0.2-1.0); CREATININE 0.8 mg/dL (0.5-1.0); THYROID STIMULATING HORMONE 2.36 uIU/mL (0.36-3.74); TOTAL PROTEIN, SERUM 6.4 g/dL (6.0-8.3)
[2024-11-25] MEDS: FAMOTIDINE 20MG TAB PO SCH (10:08)
--- NOTE | 2024-11-25 10:10 | NUR ---
DCP:HOME Pt currently lives with son and small grandchildren. pt does not have any insecurities with food ,halfway, and/or utilities. Pt uses a walker at home to ambulate. Pt has a provider that works with her 20hrs a week to assist with ADLs, meals, and home management. Pt receives medical care at [facility] and uses [place] [facility] for any RX needs. At [place] pt will go home and family can assist with transportation Addendum: 11/25/24 at 1012 by RAJESH PINEDA SS Amended: Links added.
[2024-11-25] MEDS: acetaMINOPHEN 325 MG TAB PO PRN (14:26)
[2024-11-25] MEDS ORDERED: LACTULOSE 20 GM/30 ML UDCUP PR ONE (14:30)
[2024-11-25] MEDS ORDERED: miDODRine HCL 5 MG TABLET PO PRN (14:30)
[2024-11-25] MEDS ORDERED: GABA-529 PO (14:34)
[2024-11-25] MEDS ORDERED: DULO30CA52 PO (14:34)
[2024-11-25] MEDS ORDERED: GLIM1TAB56 PO (14:34)
[2024-11-25] MEDS ORDERED: LISI5TAB21 PO (14:34)
[2024-11-25] MEDS ORDERED: DAPA5TAB PO (14:34)
--- NOTE | 2024-11-25 14:35 | PN ---
[facility] PROGRESS NOTE Date of Service: Nov 25, 2024 Time of Service: 14:16 SUBJECTIVE: This is a 63-year-old female with past medical history of endometrial cancer, osteoarthritis, uncontrolled diabetes type 2, diabetic peripheral neuropathy, dyslipidemia, obesity , depression, non compliant with dietary and medication regimen,and cigarette smoker who was brought by the EMS to the ED coming from [facility] for evaluation of dizziness and lightheadedness and patient had similar presentation in 2023 and was seen here in this ER facility.Reportedly at the clinic her BP was 53/33 and the ambulance was called and patient was given LR bolus en route and Blood sugar was 180 when checked per EMS .At the ER patients BP was 72/49 .Patient states she has been having dizzy spells for the past 3 consecutive days and her blood sugar has been in the 400's at home because she does not take her meds as she is supposed to she said .Patient reports she smoke 8 cigarettes per day. Patient denies headache, numbness, weakness, fever,chills,abdominal pain,nausea,vomiting,chest pain,palpitation and shortness of breath. Latest vital signs temperature 98.4, heart rate 89, blood pressure 95/62 saturation 95% on room air. Labs: Hemoglobin 11, hematocrit 32 platelet count 248. BUN 35, creatinine 1.1, GFR 57 glucose 133 lactic acid 2.8 troponin four BNP 14 the rest of the chemistry is unremarkable. Urinalysis is consistent with urinary tract infection. ECG result revealed normal sinus rhythm heart rate 79 . Chest x-ray result revealed clear lungs. While in the ER patient received Rocephin 1 g IV. We will admit patient for further medical management. 11/25/24 the patient was seen and examined today morning. She is complaining of left leg pain. Patient states that her dizziness and blurry vision improved. Orthostatic vitals were obtained which showed that her systolic blood pressure dropped about 40 mmHg from lying to standing. Blood pressure lying down 125/89, with sitting 133/80 and with standing 89/54. She denies headache, fever, chills, urinary complaints. Chest x-ray unremarkable. CBC unremarkable except hemoglobin 11.1. Kidney functions are improving. BUN 30 and create went down from 1.1 To 0.8. Lactic acid 1.5. Lipid panel showed triglycerides 312, total cholesterol 225, NQH227 and HDL 39. Blood glucose 307 in morning. Urine analysis positive for UTI and urine culture showed [id number] CFU. We will downgrade her to med [facility] with tele. REVIEW OF SYSTEMS CONSTITUTIONAL: Denies fevers, chills, or night sweats. No unintentional weight loss reported. NEUROLOGICAL: Improving dizziness and lightheadedness Denies headache, amaurosis fugax, motor weakness, sensory deficit, gait abnormalities, or tremors. ENT: No hearing loss, otalgia, otorrhea, rhinitis, rhinorrhea, hoarseness, or sore throat. CARDIOVASCULAR: Denies any exertional angina, dyspnea on exertion, orthopnea, paroxysmal nocturnal dyspnea, palpitations, life-threatening arrhythmias, claudication. PULMONARY: Denies any shortness of breath, cough, phlegm/sputum, hemoptysis, pleuritic chest pain. SLEEP: Denies morning headaches, daytime somnolence or napping. Denies difficulty falling asleep, staying asleep, waking from sleep. Denies knowledge of snoring. GASTROINTESTINAL: Denies any type of dysphagia to either liquids or solids. Denies nausea, vomiting, pyrosis, early satiety, abdominal pain, diarrhea, constipation, or changes in stool consistency or caliber. Denies coffee-ground emesis, hematemesis, hematochezia, or melanotic stools. GENITOURINARY: Denies frequency, urgency, nocturia, hematuria or incontinence (Storage/Irritative symptoms.) Low urinary stream, straining to void, urinary intermittency or hesitancy, splitting of the voiding stream, terminal dribbling. ENDOCRINOLOGIC: Denies polyuria, polydipsia, polyphagia or heat/cold intolerances. PHYSICAL EXAM GENERAL APPEARANCE: The patient is awake, alert, and oriented, in no acute cardiopulmonary distress. NECK: Supple. No JVD. No thyromegaly. No submental, submandibular, pre- /postauricular, occipital or supraclavicular lymphadenopathy. CHEST: Normal chest expansion. No Telemetry. LUNGS: Absence of any rales, rhonchi or any wheezing. CARDIOVASCULAR: Regular. S1 and S2 normal. No appreciable rubs, murmurs or gallops. ABDOMEN: Soft, nontender, and nondistended. There is no rebound, voluntary guarding, or rigidity. : Deferred. EXTREMITIES: Non-edematous and not cyanotic. No clubbing. Good capillary refill. SKIN: No skin breakdown. Vital Signs (last 8hr) Date Time Temp Pulse Resp B/P (MAP) Pulse Ox O2 Delivery O2 Flow Rate FiO2 11/25/24 10:58 84 20 100/53 98 Room Air 11/25/24 10:57 82 20 133/80 97 Room Air 11/25/24 10:55 97.5 81 18 125/89 99 Room Air 11/25/24 07:00 98.4 76 18 106/66 95 Room Air LABS: Laboratory: Test 11/25/24 12:08 11/25/24 03:34 11/24/24 16:20 11/24/24 16:11 Range/Units Whole Blood Glucose 275 H 70-110 MG/DL Bedside Glucose Comment Notified Nurse White Blood Count 6.2 4.8-10.8 K/uL Red Blood Count 4.00 4.00-5.50 MIL/uL Hemoglobin 11.1 L 12.0-16.0 g/dL Hematocrit 32.6 L 36-48 % Mean Corpuscular Volume 81.5 79-99 fL Mean Corpuscular Hemoglobin 27.8 27.0-33.0 pg Mean Corpuscular Hemoglobin Concent 34.0 32.0-36.0 g/dL Red Cell Distribution Width 13.4 11.0-15.5 % Platelet Count 279 130-400 K/uL Mean Platelet Volume 9.9 7.5-10.5 fL Immature Granulocyte % (Auto) 0.2 0-1 % Neutrophils (%) (Auto) 45.5 40.0-77.0 % Lymphocytes (%) (Auto) 40.7 21.0-51.0 % Monocytes (%) (Auto) 8.9 3.0-13.0 % Eosinophils (%) (Auto) 3.9 0.0-8.0 % Basophils (%) (Auto) 0.8 0.0-5.0 % Neutrophils # (Auto) 2.8 1.8-7.7 K/uL Lymphocytes # (Auto) 2.5 1.0-4.8 K/uL Monocytes # (Auto) 0.6 0.1-1.0 K/uL Eosinophils # (Auto) 0.24 0.00-0.70 K/uL Basophils # (Auto) 0.05 0.00-0.20 K/uL Absolute Immature Granulocyte (auto 0.01 0-1 K/uL Nucleated Red Blood Cells 0.0 0.0-0.19 % Sodium Level 138 136-145 mmol/L Potassium Level 4.0 3.5-5.1 mmol/L Chloride Level 106 101-111 mmol/L Carbon Dioxide Level 23 21-32 mmol/L Blood Urea Nitrogen 30 H 7-18 mg/dL Creatinine 0.8 0.5-1.0 mg/dL Glomerular Filtration Rate Calc 83 >90 mL/min Random Glucose 307 #H 70-105 mg/dL Lactic Acid Level 1.5 0.8-2.5 mmol/L Total Calcium 8.4 L 8.5-10.1 mg/dL Total Bilirubin 0.2 0.2-1.0 mg/dL Aspartate Amino Transf (AST/SGOT) 14 10-37 U/L Alanine Aminotransferase (ALT/SGPT) 17 12-78 U/L Alkaline Phosphatase 119 50-136 U/L Total Protein 6.4 6.0-8.3 g/dL Albumin 3.0 L 3.5-5.0 g/dL Triglycerides Level 312 H 30-200 mg/dL Cholesterol Level 225 H <200 mg/dL LDL Cholesterol 144 H 0-99 mg/dL HDL Cholesterol 39 35-85 mg/dL Procalcitonin < 0.05 L 0.05-0.5 ng/mL Thyroid Stimulating Hormone (TSH) 2.36 0.36-3.74 uIU/mL Total Creatine Kinase 60 21-232 U/L Troponin I High Sensitivity 4 4-50 ng/L B-Type Natriuretic Peptide 14 0-100 pg/mL Urine Color YELLOW YELLOW Urine Appearance CLOUDY H CLEAR Urine pH 6.0 5.0-8.0 Urine Specific Harvey 1.015 1.001-1.031 Urine Protein NEGATIVE NEGATIVE mg/dL Urine Glucose (UA) >=1000 H NEGATIVE mg/dL Urine Ketones NEGATIVE NEGATIVE mg/dL Urine Occult Blood NEGATIVE NEGATIVE Urine Nitrate NEGATIVE NEGATIVE Urine Bilirubin NEGATIVE NEGATIVE mg/dL Urine Urobilinogen 0.2 0.2-1.0 mg/dL Urine Leukocyte Esterase MODERATE H NEGATIVE Anna/uL Urine RBC None Seen 0-1 /HPF Urine WBC 6-10 H 0-1 /HPF Urine Squamous Epithelial Cells 2-5 0-2 /HPF Urine Bacteria Few None Seen /HPF Current Medications Medications (Trade) Dose Ordered Sig/Magdiel Route PRN Reason Start Time Stop Time Status Last Admin Dose Admin Acetaminophen (TYLenol 325MG TAB) 650 mg Q4H PRN PO MILD PAIN (1-3) 11/24/24 20:00 12/24/24 19:59 Acetaminophen (TYLenol 325MG TAB) 650 mg Q6H PRN PO TEMPERATURE GREATER THAN 101.5 11/24/24 20:00 12/24/24 19:59 Atorvastatin Calcium (LIPItor 10MG) 5 mg HS PO 11/24/24 21:00 12/24/24 20:59 11/24/24 20:37 5 MG Ceftriaxone Sodium 1 gm/ Sodium Chloride 50 ml @ 100 mls/hr BID IV 11/24/24 21:00 11/24/24 20:03 DC Ceftriaxone Sodium (ROCEphine 1G INJ) 1 gm Q12H IVPB 11/24/24 20:30 12/04/24 20:29 11/25/24 10:08 1 GM Ceftriaxone Sodium (ROCEphine 1G INJ) 1 gm Q24H IVPB 11/24/24 20:30 11/24/24 20:03 DC Dextrose (D50w) 50 ml AD PRN IV HYPOGLYCEMIA PROTOCOL 11/24/24 20:00 12/24/24 19:59 Famotidine (Pepcid 20mg Tab) 20 mg QODAY PO 11/25/24 09:00 12/25/24 08:59 11/25/24 10:08 20 MG Glucagon (Glucagon 1mg Kit) 1 mg AD PRN IM HYPOGLYCEMIA PROTOCOL 11/24/24 20:00 12/24/24 19:59 Insulin Human Regular (humuLIN R 100 UNIT/ML 3ML) INSULIN SLIDING SCAL... ACHS SQ 11/24/24 21:00 12/24/24 20:59 11/25/24 12:46 5 UNIT Magnesium Sulfate 50 ml @ 0 mls/hr PROTOCOL PRN IV OTHER [SEE ORDER COMMENTS] 11/24/24 20:00 12/24/24 19:59 Meclizine HCl (ANTIvert 12.5 mg) 12.5 mg TID PRN PO DIZZINESS 11/24/24 20:30 12/24/24 20:29 11/24/24 20:36 12.5 MG Midodrine (PROAMatine 5 MG TABLET) 5 mg BID PRN PO if SBP <90 11/25/24 14:30 12/25/24 14:29 Ondansetron HCl (zoFRAN 4MG INJ) 4 mg Q6H PRN IV NAUSEA/VOMITING 11/24/24 20:00 12/24/24 19:59 Potassium Chloride 100 ml @ 100 mls/hr AD PRN IV POTASSIUM PROTOCOL 11/24/24 20:00 12/24/24 19:59 Potassium Chloride (K-Dur/Klor-Con 20meq) 20 meq AD PRN PO POTASSIUM PROTOCOL 11/24/24 20:00 12/24/24 19:59 Potassium Chloride (KCl 10% Elixir 20meq/15ml) 20 meq AD PRN PO POTASSIUM PROTOCOL 11/24/24 20:00 12/24/24 19:59 Sodium Chloride 1,000 ml @ 100 mls/hr Q10H IV 11/24/24 20:00 12/24/24 19:59 11/25/24 06:35 100 MLS/HR DIAGNOSTICS / RADIOLOGY: [place] [address] IMAGING REPORT Signed PATIENT: FRANCO RAMOS MR#: [id number] : 1960 SEX: F AGE: 63 LOCATION: [facility] ORDER 160 STATUS: REG ER REPORT#: [id number] SERVICE 160 REASON: CHEST PAIN ORDERING PHYSICIAN: JOLENE ENGLAND MD PROCEDURE: CXR1VW - CHEST 1VW Exam Type: CHEST 1VW Clinical Information: CHEST PAIN Comparison: None Findings: The lungs are clear of infiltrates. The heart is normal in size. The bony and soft tissue structures of the chest are unremarkable. Impression: Clear lungs. DICTATED BY: WINNIE SANDOVAL MD DATE: 11/24/241635 ELECTRONICALLY SIGNED BY: WINNIE SANDOVAL MD DATE: 11/24/241637 ASSESSMENT: Orthostatic hypotension POA Acute urinary tract infection POA Uncontrolled diabetes POA Diabetic peripheral neuropathy POA Lactic acidosis POA Chronic kidney disease POA Chronic anemia POA Nicotine dependence POA Noncompliance with medication POA Obesity POA Dyslipidemia POA PLAN: We will downgrade the patient to med surge with tele. Continue on consistent carb diet Orthostatic hypotension POA Blood pressure lying down 125/89, with sitting 133/80 and with standing 89/54. Orthostatic vitals were obtained which showed that her systolic blood pressure dropped about 40 mmHg from lying to standing. Continue on Midodrine 5 mg po bid Acute urinary tract infection POA Analysis is positive for moderate leukocyte esterase, WBC. Urine culture showed [id number] CFU. Continue IV Rocephin. Chronic kidney disease POA We will continue NS @ 100 ml / hr. Kidney functions are improving. BUN 30 and creatinine went down from 1.1-0.8. ANGY likely from dehydration. Uncontrolled diabetes POA Blood pressure in the morning was 307. We will check HB A1c level. Continue insulin sliding scale AC & HS with hypoglycemia protocol We will start her on long-acting Lantus. Diabetic peripheral neuropathy POA Resume her home medication gabapentin. Lactic acidosis POA Lactic acid trending down 1.5 From 2.8. Chronic anemia POA Hemoglobin 11.1 and we will check iron panel studies. Dyslipidemia POA Lipid profile showed triglycerides 312, total cholesterol 225, LDL 144 and HDL 39. Patient is not on any statins at home. Continue Famotidine 20 mg p.o. daily for GI prophylaxis prn medication for fever,pain,cough , nausea and vomiting ATTESTATION BY PHYSICIAN I have seen and examined the patient. I reviewed the documentation, medical decision making, and treatment plan as noted by the resident provider above. I agree with the findings and plan of care. Aleksandr Harden MD, KRUPALI P MD Nov 25, 2024 14:35
[2024-11-25] MEDS: LACTULOSE 20 GM/30 ML UDCUP PO ONE (14:44)
[2024-11-25] MEDS ORDERED: LACTULOSE 20 GM/30 ML UDCUP PO PRN (15:00)
[2024-11-25] MEDS: INSULIN humuLIN R 100 UNIT/ML 3ML SQ SCH (17:45)
--- NOTE | 2024-11-25 18:10 | NUR ---
RECEIVED PT FROM ROOM 222 INTO 318. PT TRANSFERRED VIA WHEELCHAIR. PT IS ALERT AND ORIENTED. PT IN NO APPARENT DISTRESS. PT REMAINS COMFORTABLE IN BED.
[2024-11-25] MEDS: GABApentin 100 MG CAPSULE PO SCH (21:39)
[2024-11-25] MEDS: INSULIN GLARgine 100 UNITS/ML 10 ML VIAL SQ SCH (21:41)
[2024-11-26] VITALS: BP 102/57; PULSE 75; RESP 17; TEMP 98.1
[2024-11-26 04:37] VITALS: BP 102/61; PULSE 68; RESP 18; TEMP 97.7
[2024-11-26 05:58] LABS: BASOPHILS # (AUTO) 0.04 K/uL (0.00-0.20); BASOPHILS % (AUTO) 0.7 % (0.0-5.0); EOSINOPHILS # (AUTO) 0.22 K/uL (0.00-0.70); EOSINOPHILS % (AUTO) 4.1 % (0.0-8.0); HEMATOCRIT 32.8 % (36-48); IMMATURE GRANULOCYTE ABSOLUTE 0.02 K/uL (0-1); LYMPHOCYTES # (AUTO) 2.3 K/uL (1.0-4.8); LYMPHOCYTES % (AUTO) 42.5 % (21.0-51.0); MEAN CORPUSCULAR HEMOGLOBIN 27.6 pg (27.0-33.0); MEAN CORPUSCULAR HGB CONC 33.2 g/dL (32.0-36.0); MONOCYTES # (AUTO) 0.5 K/uL (0.1-1.0); MONOCYTES % (AUTO) 8.8 % (3.0-13.0); NEUTROPHILS # (AUTO) 2.3 K/uL (1.8-7.7); NEUTROPHILS % (AUTO) 43.5 % (40.0-77.0); PLATELET COUNT (AUTO) 259 K/uL (130-400); RED BLOOD CELL COUNT(AUTO) 3.95 MIL/uL (4.00-5.50); RED CELL DISTRIBUTION WIDTH 13.3 % (11.0-15.5); WHITE BLOOD COUNT (AUTO) 5.4 K/uL (4.8-10.8)
[2024-11-26 06:09] LABS: CREATININE 0.8 mg/dL (0.5-1.0); MAGNESIUM 1.6 mg/dL (1.80-2.40); POTASSIUM 3.8 mmol/L (3.5-5.1)
[2024-11-26 06:19] LABS: % IRON SATURATION 15.1 % (22-44)
[2024-11-26 08:00] VITALS: BP_SYST 127; BP_SYST 130; BP_SYST 149; BP_DIAS 65; BP_DIAS 70; BP_DIAS 86; PULSE 77; RESP 19; TEMP 98.2; O2SAT 99
[2024-11-26] MEDS: LISINOPRIL 5 MG TABLET PO SCH (09:08)
[2024-11-26 12:00] VITALS: BP_SYST 108; BP_SYST 130; BP_SYST 95; BP_DIAS 50; BP_DIAS 59; BP_DIAS 71; PULSE 78; RESP 19; TEMP 98.1
--- NOTE | 2024-11-26 13:17 | DS ---
Discharge Summary Hospital Course Summary: This is a 63-year-old female with past medical history of endometrial cancer, osteoarthritis, uncontrolled diabetes type 2, diabetic peripheral neuropathy, dyslipidemia, obesity , depression, non compliant with dietary and medication regimen,and cigarette smoker who was brought by the EMS to the ED coming from [facility] on 11/24/24 for evaluation of dizziness and lightheadedness and patient had similar presentation in 2023 and was seen here in this ER facility. Reportedly at the clinic her BP was 53/33 and the ambulance was called and patient was given LR bolus en route and Blood sugar was 180 when checked per EMS . At the ER patients BP was 72/49 .Patient stated she has been having dizzy spells for the past 3 consecutive days and her blood sugar has been in the 400's at home because she does not take her meds as she is supposed to she said . Patient reported she smoke 8 cigarettes per day. Patient denied headache, numbness, weakness, fever,chills,abdominal pain,nausea,vomiting,chest pain,palpitation and shortness of breath. Latest vital signs temperature 98.4, heart rate 89, blood pressure 95/62 saturation 95% on room air. Labs: Hemoglobin 11, hematocrit 32 platelet count 248. BUN 35, creatinine 1.1, GFR 57 glucose 133 lactic acid 2.8 troponin four BNP 14 the rest of the chemistry unremarkable. Urinalysis consistent with urinary tract infection. ECG result revealed normal sinus rhythm heart rate 79 . Chest x-ray result revealed clear lungs. While in the ER patient received Rocephin 1 g IV. Patient was admitted for further medical management. On 11/25/24 the patient was complaining of left leg pain. Patient stated that her dizziness and blurry vision improved. Orthostatic vitals were obtained which showed that her systolic blood pressure dropped about 40 mmHg from lying to standing. Blood pressure lying down 125/89, with sitting 133/80 and with standing 89/54. She denied headache, fever, chills, urinary complaints. Chest x-ray unremarkable. CBC unremarkable except h emoglobin 11.1. Kidney functions improved BUN 30 and create went down from 1.1 To 0.8. Lactic acid 1.5. Lipid panel showed triglycerides 312, total cholesterol 225, UOE680 and HDL 39. Blood glucose 307 in morning. Urine analysis positive for UTI and urine culture showed [id number] CFU, mixed skin hector contamination. On 11/26/24, patient was clinically stable. Vitals stabl e. Blood pressure with lying down 149/86, with sitting 127/70, standing 130/65 mmHg. Patient denies any complaints today. Her lightheadedness and dizziness resolved. Iron panel studies showed iron 45, TIBC 297 and saturation 15.1%. Hemoglobin 10.9. CMP unremarkable. BUN23 and creatinine 0.8. Glucose 126. Magnesium 1.60 and was replaced as per the magnesium protocol. The UTI likely from [facility]. Patient will not need any antibiotics for UTI on discharge. Patient is clinically stable for discharge today. Patient is advised to hold her home medication lisinopril due to orthostatic hypotension, and can be restarted by her PCP on her follow up appointment with them. Patient is advised to follow up with PCP within 3-5 days after the discharge. Director Of Operations Support(s): None Procedure(s): [facility] [address] [place] [id number] IMAGING REPORT Signed PATIENT: FRANCO RAMOS MR#: [id number] : 1960 SEX: F AGE: 63 LOCATION: [facility] ORDER 1607 STATUS: [facility] REPORT#: [id number] SERVICE 1605 REASON: CHEST PAIN ORDERING PHYSICIAN: JOLENE ENGLAND MD PROCEDURE: CXR1VW - CHEST 1VW Exam Type: CHEST 1VW Clinical Information: CHEST PAIN Comparison: None Findings: The lungs are clear of infiltrates. The heart is normal in size. The bony and soft tissue structures of the chest are unremarkable. Impression: Clear lungs. DICTATED BY: WINNIE SANDOVAL MD DATE: 11/24/241635 ELECTRONICALLY SIGNED BY: WINNIE SANDOVAL MD DATE: 11/24/24 1635 [facility] [address] [place] [address] [id number] ELECTRO CARDIOGRAM Signed PATIENT: FRANCO RAMOS MR#: [id number] : 1960 SEX: F AGE: 63 LOCATION: [facility] ROOM/BED: 222-1 ORDER [id number] REPORT#: [id number] REASON: ORDERING PHYSICIAN: JOLENE ENGLAND MD PROCEDURE: EKG - 12 LEAD EKG TRACING- TECHNICAL [facility] Test Date: 2024-11-24 Test Time: 16:31:59 Pat Name: FRANCO RAMOS Department: ED Room: 222 Gender: F Receiver Bulk System: [id number] : 1960 Requested By: JOLENE ENGLAND Order Number: [id number] Reading MD: Raphael Aponte Measurements Intervals [place] Rate: 79 P: 55 SD: 170 QRS: 36 QRSD: 81 T: 60 QT: 385 QTc: 443 Interpretive Statements Sinus rhythm Compared to ECG 02/18/2024 11:38:41 No significant changes Electronically Signed On 11-24-2024 22:56:53 CDT by Raphael Aponte Please click the below link to view image of tracing. RUN DATE: 11/26/24 [facility] [address] RUN TIME: [id number] [place] [address] Department of Laboratories [place] # [id number] Co Supervisor [employer] Land[employer]: Maria Luz Feldman DO Specimen Report PATIENT: FRANCO RAMOS ACCT: [id number] LOC: [facility] U: [id number] AGE/SX: 63/F ROOM: 318 RE11/24/[address]: LUZ MARIA MODI MD : 1960 BED: 1 DIS: STATUS: ADM IN TLOC: SPEC: [id number] KENY: 11/24/24 STATUS: COMP REQ: [id number] RECD: 11/24/[address]: JOLENE ENGLAND MD SOURCE: URINE CC ENTR: 11/24/[address]: CESAR HUGO MD [facility]: ORDERED: URINE CULTURE Procedure Result Mirta Date-Time URINE CULTURE Final 11/26/24-1007 REPORT URINE 10,000 TO 50,000 CFU >3 COLONY TYPES PRESENT POSSIBLE MIXED SKIN HECTOR CONTAMINATION Assessment/Plan: ASSESSMENT: Orthostatic hypotension POA Acute urinary tract infection likely from [facility] POA Uncontrolled diabetes POA Diabetic peripheral neuropathy POA Lactic acidosis POA Chronic kidney disease POA Chronic anemia POA Nicotine dependence POA Noncompliance with medication POA Obesity POA Dyslipidemia POA Discharge Instructions: ADMISSION DATE : 11/24/24 DISCHARGE DATE : 11/26/24 DISPOSITION : Home CONDITION : Stable Director Of Operations Support(s) : None FOLLOW UP APPOINTMENTS : Patient to follow-up with the PCP within 3-5 days upon discharge. PROCEDURES : None IMAGING (s) : Report attached to summary : Chest x-ray and EKG MICROBIOLOGY : Report attached to summary. Urine culture ACTIVITY : ab rhoda HOME MEDICATIONS : Continue. Patient is advised to hold lisinopril due to orthostatic hypotension and can restart after she sees her PCP after the discharge. NEW MEDICATIONS : None TEACHING : We reinforced the importance of medication compliance and with follow up appointments. Advised patient to follow-up with the PCP within 3-5 days upon discharge. Emergency instructions : The patient was instructed to present to the nearest Emergency Department or call 911 should their symptoms return or worsen. Home Medications: Reported Medications Duloxetine HCl (Duloxetine HCl) 30 Mg Capsule.dr, 1 CAP PO DAILY for 30 Days, #30 CAP 0 Refills 11/25/24 Dapagliflozin Propanediol (Farxiga) 5 Mg Tablet, 1 TAB PO DAILY for 30 Days, #30 TAB 0 Refills 11/25/24 Glimepiride (Glimepiride) 1 Mg Tablet, 1 TAB PO DAILY for 30 Days, #30 TAB 0 Refills 11/25/24 Lisinopril (Lisinopril) 5 Mg Tablet, 5 MG PO DAILY, TAB 11/25/24 Gabapentin (Gabapentin) 100 Mg Capsule, 300 MG PO TID, CAP 11/25/24 Metformin HCl (Metformin HCl) 1,000 Mg Tablet, 1000 MG PO BID, TAB 09/22/18 Discontinued Reported Medications Insulin Aspart (Novolog) 100 Units/Ml Inj, 25 UNITS SQ TID, ML 09/22/18 Insulin Detemir (Levemir) 100 Unit/1 Ml Vial, 55 UNIT SQ HS, VIAL 09/22/18 Aspirin (Aspir 81) 81 Mg Tablet.dr, 81 MG PO DAILY, TAB 09/22/18 Hydrocodone/Acetaminophen (Hydrocodon-Acetaminophen 5-325) 1 Each Tablet, 1 EACH PO BID, TAB 09/22/18 Pregabalin (Lyrica) 75 Mg Cap, 75 MG PO TID, CAP 09/22/18 Pravastatin Sodium (Pravastatin Sodium) 20 Mg Tablet, 20 MG PO HS, TAB 09/22/18 Discontinued Scripts Acetaminophen with Codeine (Tylenol with Codeine #3) 1 Tab Tab, 1 TAB PO Q6HPRN PRN for PAIN LEVEL 6 TO 10 for 3 Days, #18 TAB Prov:PATRICE MACEDO AGPCNP 10/02/18 Continued Medications: Dapagliflozin Propanediol (Farxiga) 5 Mg Tablet 1 TAB PO DAILY for 30 Days, #30 TAB 0 Refills Duloxetine HCl (Duloxetine HCl) 30 Mg Capsule.dr 1 CAP PO DAILY for 30 Days, #30 CAP 0 Refills Gabapentin (Gabapentin) 100 Mg Capsule 300 MG PO TID, CAP Glimepiride (Glimepiride) 1 Mg Tablet 1 TAB PO DAILY for 30 Days, #30 TAB 0 Refills Lisinopril (Lisinopril) 5 Mg Tablet 5 MG PO DAILY, TAB Metformin HCl (Metformin HCl) 1,000 Mg Tablet 1000 MG PO BID, TAB Time spent arranging discharge: 31-60 minutes ATTESTATION BY PHYSICIAN I have seen and examined the patient. I reviewed the documentation, medical decision making, and treatment plan as noted by the resident provider above. I agree with the findings and plan of care. Aleksandr Harden MD, KRUPALI P MD Nov 26, 2024 13:17
== END 2024-11-26 15:20 | disposition home or self-care (01) | DRG 312 ==
LOC: EDH 15:45 → EDHIP 19:42 → 2DH 22:49 → 3CH 11-25 18:10
PROVIDERS: ADMIT Internal Medicine; ATTEND Internal Medicine
DX: I95.1 Orthostatic hypotension (principal); N39.0 Urinary tract infection, site not specified; E87.20 Acidosis, unspecified; E11.65 Type 2 diabetes mellitus with hyperglycemia; N18.9 Chronic kidney disease, unspecified; D64.9 Anemia, unspecified; E78.00 Pure hypercholesterolemia, unspecified; E11.22 Type 2 diabetes mellitus with diabetic chronic kidney disease; E11.42 Type 2 diabetes mellitus with diabetic polyneuropathy; K21.9 Gastro-esophageal reflux disease without esophagitis; F32.A Depression, unspecified; E66.9 Obesity, unspecified; F17.210 Nicotine dependence, cigarettes, uncomplicated; I12.9 Hypertensive chronic kidney disease with stage 1 through stage 4 chronic kidney disease, or unspecified chronic kidney disease; I48.91 Unspecified atrial fibrillation; Z85.42 Personal history of malignant neoplasm of other parts of uterus; Z90.710 Acquired absence of both cervix and uterus; Z91.148 Patient's other noncompliance with medication regimen for other reason; Z68.25 Body mass index [BMI] 25.0-25.9, adult; Z79.899 Other long term (current) drug therapy
CPT/HCPCS: 36415; 71045; 80048; 80053; 80061; 81001; 82550; 82948; 83036; 83540; 83550; 83605; 83735; 83880; 84145; 84443; 84484; 85025; 87086; 93005; 99285; G0378; J0696; J1815